=== PATIENT | female | born 1985 ===

== ENCOUNTER 2017-07-16 13:17 | Emergency (ER) | payer OTHER ==
[2017-07-16 13:32] VITALS: BP 107/66; PULSE 90; RESP 16; TEMP 97; O2SAT 100
--- NOTE | 2017-07-16 14:11 | ED PDOC ---
HPI: Back Time Seen by Provider: 07/16/17 13:37 Chief Complaint (Nursing): Back Pain Chief Complaint (Provider): Back pain History Per: Patient History/Exam Limitations: no limitations Onset/Duration Of Symptoms: Persistent Current Symptoms Are (Timing): Still Present Quality Of Discomfort: "Pain" Previous Symptoms: Chronic Pain Additional Complaint(s): 32yo female with history of chronic back pain and sciatica, presents to ED with complaints of persistent back pain. She states she already follows up with a senior painter at [place] and she had a MRI study last year which indicated protrusion at the level of S1. She also is following up with neurologist, Dr. Mckee in [place] and is currently taking gabapentin, flexeril and naproxen. Otherwise: (-) paresthesias, (-) weakness, (-) acute bowel or bladder dysfunction, (-) fever. Past Medical History Reviewed: Historical Data, Nursing Documentation, Vital Signs Vital Signs: Last Vital Signs Temp 97.0 F L 07/16/17 13:29 Pulse 90 07/16/17 13:29 Resp 16 07/16/17 13:29 BP 107/66 07/16/17 13:29 Pulse Ox 100 07/16/17 13:29 - Medical History PMH: Back Problems - Surgical History Surgical History: No Surg Hx - Family History Family History: States: No Known Family Hx - Allergies Allergies/Adverse Reactions: Allergies Allergy/AdvReac Type Severity Reaction Status Date / Time tramadol AdvReac VOMITING Verified 07/16/17 13:28 Review of Systems ROS Statement: Except As Marked, All Systems Reviewed And Found Negative Constitutional: Negative for: Fever, Chills Genitourinary Female: Negative for: Dysuria, Frequency, Hematuria Musculoskeletal: Positive for: Back Pain Neurological: Negative for: Weakness, Numbness Physical Exam - Physical Exam Comments: GENERAL APPEARANCE: Patient is awake, alert, oriented x 3, in mild painful distress. Patient ambulatory in the ER. SKIN: Warm, dry; (-) cyanosis. EYES: (-) conjunctival pallor. ENMT: Mucous membranes moist. NECK: (-) tenderness, (-) stiffness, (-) lymphadenopathy. CHEST AND RESPIRATORY: (-) rales, (-) rhonchi, (-) wheezes; breath sounds equal bilaterally. HEART AND CARDIOVASCULAR: (-) irregularity; (-) murmur, (-) gallop. ABDOMEN AND GI: Soft; (-) tenderness; (-) palpable mass. BACK: Diffusely tender paralumbar area, (+) mild spasm, (-) direct bony tenderness, (-) deformity. EXTREMITIES: (-) deformity. Distal pulses good bilaterally. NEURO AND PSYCH: Mental status as above. Intact sensation bilaterally; normal strength in extension of the knees, plantar and dorsiflexion of the toes. DTRs symmetric. - ECG O2 Sat by Pulse Oximetry: 100 (RA) Pulse Ox Interpretation: Normal Medical Decision Making Medical Decision Making: Impression: Chronic back pain, sciatica Plan: -- Toradol 60 mg IM Patient advised to take Motrin 800mg for pain instead of Naproxen. Also informed to continue taking her Gabapentin and Flexeril and to follow up with her pain management doctor and neurologist. Return to the emergency room at any time for any new or worsening symptoms. Patient states she fully agrees with and understands discharge instructions. States that she agrees with the plan and disposition. Verbalized and repeated discharge instructions and plan. I have given the patient opportunity to ask any additional questions. Scribe Attestation: Documented by Lala Conteh acting as a scribe for Sridevi Martinez PA-C. Provider Attestation: All medical record entries made by the Scribe were at my direction and personally dictated by me. I have reviewed the chart and agree that the record accurately reflects my personal performance of the history, physical exam, medical decision making, and the department course for this patient. I have also personally directed, reviewed, and agree with the discharge instructions and disposition. Disposition - Clinical Impression Clinical Impression: Chronic back pain, Sciatica - Patient ED Disposition Is Patient to be Admitted: No Counseled Patient/Family Regarding: Diagnosis, Need For Followup, Rx Given - Disposition Disposition: Routine/Home Disposition Time: 15:00 Condition: STABLE Additional Instructions: Thank you for letting us take care of you today. You were treated for chronic back pain, sciatica. The emergency medical care you received today was directed at your acute symptoms. If you were prescribed any medication, please fill it and take as directed. It may take several days for your symptoms to resolve. Return to the Emergency Department if your symptoms worsen, do not improve, or if you have any other problems. Please contact your pain management doctor in 2 days for re-evaluation and follow up. Bring any paperwork you were given at discharge with you along with any medications you are taking to your follow up visit. Our treatment cannot replace ongoing medical care by a primary care provider (PCP) outside of the emergency department. Thank you for allowing the [facility] team to be part of your care today. Instructions: Sciatica, Chronic Pain Forms: [employer] (Polish), [facility] ED School/Work Excuse Print Language: AMHARIC
== END 2017-07-16 14:14 | disposition home or self-care (01) ==
LOC: H.ER 13:17
DX: M54.9 Dorsalgia, unspecified (principal); M54.30 Sciatica, unspecified side; G89.29 Other chronic pain
CPT/HCPCS: 96372; 99281; J1885